=== PATIENT | male | born 1990 ===

== ENCOUNTER 2022-05-26 08:00 | Emergency (ER) | payer BC | END 2022-05-26 12:41 | disposition home or self-care (01) | LOC: MW.ED 08:00 | DX: F41.9 Anxiety disorder, unspecified (principal); F10.239 Alcohol dependence with withdrawal, unspecified | CPT/HCPCS: 99284 ==

== ENCOUNTER 2022-06-07 11:02 | Emergency (ER) | payer BC ==
[2022-06-07] MEDS ORDERED: Ketorolac 60 MG/2 ML SDV IM ONE (11:25)
== END 2022-06-07 12:30 | disposition home or self-care (01) ==
LOC: MW.ED 11:02
DX: S20.211A Contusion of right front wall of thorax, initial encounter (principal); W50.0XXA Accidental hit or strike by another person, initial encounter; Y93.72 Activity, wrestling
CPT/HCPCS: 71046; 93005; 96372; 99283; J1885; 93010